=== PATIENT | male | born 2000 | race Caucasian/White ===

== ENCOUNTER 2020-12-30 10:36 | Emergency (ER) | payer BC ==
--- NOTE | 2020-12-30 11:16 | EDM.PDOC ---
ED HPI GENERAL MEDICAL PROBLEM - General Chief Complaint: Trauma Stated Complaint: LT FACE INJURY Time Seen by Provider: 12/30/20 10:40 Source of Information: Reports: Patient History Limitations: Reports: No Limitations - History of Present Illness INITIAL COMMENTS - FREE TEXT/NARRATIVE: Ashok is a 20 year old male who presents to ER with facial trauma. Admits that was drinking ETOH last night, got home around 0500 and fell down the stairs. Not sure how happened but recalls much of it, did not lose consciousness. Apparently just went to bed after and didn't realize he had open lacerations on his face. Noted this am when he got up, eye was black, has abrasions on his eye and cheek. Lip laceration and chin laceration. Broke off one tooth and lost another. Did keep the tooth and saw the dentist this am. Is scheduled to see a specialist in [place] at 2 pm today. Does have a mild headache. No neurological changes. No vomiting. Girlfriend here says he has been acting normally without concern. No gait disturbance. No vision changes. Onset: Today, Sudden Duration: Hour(s):, Constant Location: Reports: Face Quality: Reports: Ache Severity: Mild Associated Symptoms: Reports: Headaches. Denies: Confusion, Chest Pain, Cough, Loss of Appetite, Nausea/Vomiting, Shortness of Breath, Syncope Treatments NIPPLE THREADER: Reports: Acetaminophen Past Medical History - Past Health History Medical/Surgical History: Denies Medical/Surgical History Social & Family History - Tobacco Use Tobacco Use Status *Q: Unknown Ever Used Tobacco ED ROS GENERAL - Review of Systems Review Of Systems: See Below Constitutional: Denies: Malaise, Weakness, Fatigue, Decreased Appetite HEENT: Reports: Dental Pain (did lose one tooth and broke off another), Nosebleed. Denies: Ear Pain, Eye Pain, Nose Pain, Vertigo, Vision Change Respiratory: Denies: Shortness of Breath, Cough Cardiovascular: Denies: Chest Pain, Edema, Lightheadedness Endocrine: Denies: Fatigue GI/Abdominal: Denies: Abdominal Pain, Nausea, Vomiting : Reports: No Symptoms Musculoskeletal: Reports: No Symptoms Skin: Reports: Bruising, Wound Neurological: Reports: Headache. Denies: Numbness, Tingling, Trouble Speaking, Difficulty Walking, Gait Disturbance ED EXAM, SKIN/RASH Exam: See Below Exam Limited By: No Limitations General Appearance: Alert, WD/WN, No Apparent Distress Eye Exam: Bilateral Eye: EOMI, PERRL Ears: Normal External Exam, Normal TMs Nose: Normal Inspection, Normal Mucosa, Other (dried blood in right nare) Throat/Mouth: Normal Inspection, Normal Oropharynx, Other (1 cm left lip laceration. Loss of one tooth to upper gum and broke off front tooth in half.) Head: Other (left facial/cheek abrasion. Abrasion to chin. Has ecchymosis to left eye. ) Neck: Normal Inspection, Supple, Non-Tender, Full Range of Motion Respiratory/Chest: No Respiratory Distress, Lungs Clear, Normal Breath Sounds Cardiovascular: Regular Rate, Rhythm GI/Abdominal: Normal Bowel Sounds, Soft, Non-Tender Back Exam: Normal Inspection, Full Range of Motion Extremities: Normal Inspection, Normal Range of Motion Neurological: Alert, Oriented, CN II-XII Intact, Normal Cognition, Normal Gait, Normal Reflexes, No Motor/Sensory Deficits Skin: Warm, Wound/Incision Location, Skin: Face Characteristics: Other (Y-shaped laceation to chin. 1 cm laceration to lip.) ED SKIN PROCEDURES - Laceration/Wound Repair Left Lower Face Appearance: Subcutaneous, Stellate Distal NVT: Neuro & Vascular Intact Anesthetic Type: Local Local Anesthesia - Lidocaine (Xylocaine): 1% Plain Local Anesthetic Volume: 2cc Skin Prep: Chlorhexidine (Hibiciens) Exploration/Debridement/Repair: Wound Explored, Explored to Base Closed with: Sutures Lac/Wound length In cm: 2 Suture Size: 6-0 # of Sutures: 4 Suture Type: Nylon, Interrupted, Simple Sterile Dressing Applied: Nurse Complications: No Progress/Comments: lip laceration 1 cm in length. Anesthesized with 1% lidocaine. One suture with 6-0 nylon interrupted suture placed, wound approximated well. Course - Orders/Labs/Meds Meds: Medications Discontinued Medications Generic Name Dose Route Start Last Admin Trade Name Freq PRN Reason Stop Dose Admin Lidocaine HCl 5 ml 12/30/20 10:50 Lidocaine 1% 5 Ml Sdv INJECT 12/30/20 10:51 ONETIME ONE Departure - Departure Time of Disposition: 11:14 Disposition: Home, Self-Care 01 Condition: Good Clinical Impression: Laceration of chin without complication, Lip laceration - Discharge Information *PRESCRIPTION DRUG MONITORING PROGRAM REVIEWED*: No *COPY OF PRESCRIPTION DRUG MONITORING REPORT IN PATIENT BLAINE: No Instructions: Laceration Care, Adult, Mouth Laceration Referrals: Karla Cummins PA-C [Primary Care Provider] - Forms: ED Department Discharge Additional Instructions: 1. Keep wounds clean and dry 2. Avoid shaving until sutures out 3. Rinse mouth/lip frequently through day 4. Watch for increased redness/pain/drainage from wounds 5. Sutures out in 5 days 6. Call provider sooner if note any concerns with infection
== END 2020-12-30 11:33 | disposition home or self-care (01) ==
LOC: VM.ED 10:36
DX: S01.511A Laceration without foreign body of lip, initial encounter (principal); W10.9XXA Fall (on) (from) unspecified stairs and steps, initial encounter; Y92.009 Unspecified place in unspecified non-institutional (private) residence as the place of occurrence of the external cause
CPT/HCPCS: 12011; 12013; 99282-25; 99283

== ENCOUNTER 2023-07-28 10:01 | Emergency (ER) | payer BC | END 2023-07-28 11:50 | disposition home or self-care (01) | LOC: VM.ED 10:01 | DX: S93.401A Sprain of unspecified ligament of right ankle, initial encounter (principal); X50.1XXA Overexertion from prolonged static or awkward postures, initial encounter | CPT/HCPCS: 73610-RT; 99283 ==